=== PATIENT | female | born 1965 | race Hispanic/Latino ===

== ENCOUNTER 2018-03-12 16:14 | Emergency (ER) | payer BC, OTHER ==
[2018-03-12] MEDS ORDERED: ACETAMINOPHEN-CODEINE 300/30MG TAB ONE (17:14)
[2018-03-12] MEDS ORDERED: TETANUS/DIPHTHERIA TOXOID [ADULT] 0.5 ML VIAL IM ONE (17:15)
== END 2018-03-12 18:21 | disposition home or self-care (01) ==
LOC: EDH 16:14
DX: S50.871A Other superficial bite of right forearm, initial encounter (principal); W54.0XXA Bitten by dog, initial encounter; Y93.89 Activity, other specified; Y92.488 Other paved roadways as the place of occurrence of the external cause; Y99.8 Other external cause status
CPT/HCPCS: 73140; 90471; 90714

== ENCOUNTER 2019-04-22 12:55 | Emergency (ER) | payer BC | END 2019-04-22 14:29 | disposition home or self-care (01) | LOC: EDH 12:55 | DX: H92.01 Otalgia, right ear (principal); Z72.0 Tobacco use | CPT/HCPCS: 99281 ==